=== PATIENT | female | born 1950 | race Caucasian/White ===

== ENCOUNTER 2017-05-15 12:54 | Outpatient (CLI) | payer OTHER | END 2017-05-15 13:11 | disposition home or self-care (01) | LOC: SONOGRAMA 12:54 | DX: N63.13 Unspecified lump in the right breast, lower outer quadrant (principal); N63.11 Unspecified lump in the right breast, upper outer quadrant ==

== ENCOUNTER 2017-07-06 15:19 | Outpatient (CLI) | payer OTHER | END 2017-07-06 15:24 | disposition home or self-care (01) | LOC: RAD 15:19 | DX: I10 Essential (primary) hypertension (principal) ==

== ENCOUNTER 2017-07-07 13:08 | Outpatient (CLI) | payer OTHER | END 2017-07-07 13:20 | disposition home or self-care (01) | LOC: LAB 13:08 → EKG 13:08 | DX: I10 Essential (primary) hypertension (principal) ==

== ENCOUNTER 2017-07-21 05:20 | Day surgery (SDC) | payer OTHER ==
[~2017-07-21 05:20] MED LIST: HYDROCHLOROTHIA25 MG PO; LISINOPRIL5 MG PO; METFORMIN HCL500 MG PO; PRAVASTATIN SOD40 MG PO
== END 2017-07-21 20:55 | disposition home or self-care (01) ==
LOC: CIR.AMB 05:20
DX: C50.411 Malignant neoplasm of upper-outer quadrant of right female breast (principal); R92.0 Mammographic microcalcification found on diagnostic imaging of breast